=== PATIENT | female | born 1975 | race Caucasian/White ===

== ENCOUNTER → 2020-12-19 | Outpatient (CLI) | payer BC ==
[~2020-12-19] MED LIST: CELEXA 20MG20 MG/TAB PO; EUTHYROX100 MCG PO; MIRENA52 MG IY
== END ==
LOC: MC.RAD 15:59
DX: Z12.31 Encounter for screening mammogram for malignant neoplasm of breast (principal)

== ENCOUNTER 2021-06-19 09:25 | Day surgery (SDC) | payer BC ==
[~2021-06-19] VITALS: Ht 165.1 cm; Wt 66.1 kg
[2021-06-19] MEDS ORDERED: CELEXA 20MG20 MG/TAB PO (09:37)
[2021-06-19] MEDS ORDERED: EUTHYROX100 MCG PO (09:38)
[2021-06-19 09:41] VITALS: BP 108/73; PULSE 55; TEMP 97.8
[2021-06-19] MEDS ORDERED: MIRENA52 MG IY (09:46)
[2021-06-19 12:15] VITALS: BP 109/66; PULSE 49; TEMP 98
[2021-06-19 12:30] VITALS: BP 100/67; PULSE 50
[2021-06-19 12:45] VITALS: BP 106/73; PULSE 45
--- NOTE | 2021-06-19 13:02 | NUR ---
1215 Pt returns from endo procedure via cart and RN assist to [facility] [place] [facility]. Pt ambulates from cart to recliner with RN assist. Monitors on and alarms set. Call light within reach. Report received from LINDSEY Goodman. Pt alert and oriented. Pt requests Pepsi and muffin. Pt denies any pain or nausea. 1230 Pt taking food and drink well. No complications noted. 1255 Discharge instructions given to pt and . All questions answered to their satisfaction. Handed to pt is discharge information. 1302 Pt transferred out of the hospital via wheelchair and this RN assist, to private vehicle driven by pt's .
== END 2021-06-19 13:02 | disposition home or self-care (01) ==
LOC: SDCO 09:25
DX: Z12.11 Encounter for screening for malignant neoplasm of colon (principal); D12.5 Benign neoplasm of sigmoid colon; F32.9 Major depressive disorder, single episode, unspecified; F41.9 Anxiety disorder, unspecified; E03.9 Hypothyroidism, unspecified; Z79.899 Other long term (current) drug therapy
CPT/HCPCS: J2704; J7030

== ENCOUNTER → 2022-06-19 | Outpatient (CLI) | payer BC | LOC: MC.RAD 06:52 | DX: Z12.31 Encounter for screening mammogram for malignant neoplasm of breast (principal) ==

== ENCOUNTER → 2023-08-18 | Outpatient (CLI) | payer BC | LOC: MC.RAD 06:57 | DX: Z12.31 Encounter for screening mammogram for malignant neoplasm of breast (principal) ==